=== PATIENT | male | born 1965 | race Caucasian/White ===

== ENCOUNTER 2022-12-24 09:32 | Emergency (ER) | payer BC ==
[2022-12-24] MEDS ORDERED: Sodium Chloride 0.9% 10 ML Syringe FLUSH PRN (09:40)
[2022-12-24 09:50] LABS: BASOPHILS ABSOLUTE AUTO 0.03 10^3/uL (0.00-0.10); BASOPHILS PERCENT AUTO 0.3 % (0.0-1.0); EOSINOPHILS ABSOLUTE AUTO 0.01 10^3/uL (0.10-0.30); EOSINOPHILS PERCENT AUTO 0.1 % (1.0-3.0); HEMATOCRIT 53.5 % (40.0-52.0); HEMOGLOBIN 18.4 g/dL (13.0-17.0); IMMATURE GRAN ABSOLUTE AUTO 0.04 10^3/uL (0.00-0.50); IMMATURE GRAN PERCENT AUTO 0.4 % (0.0-5.0); LYMPHOCYTES ABSOLUTE AUTO 1.53 10^3/uL (1.00-4.00); MEAN CORPUSCULAR HEMOGLOBIN 29.7 pg (27.0-31.0); MEAN CORPUSCULAR HGB CONC 34.4 g/dL (32.0-36.0); MEAN CORPUSCULAR VOLUME 86.4 fL (82.0-92.0); MEAN PLATELET VOLUME 10.9 fL (7.4-10.4); MONOCYTES ABSOLUTE AUTO 0.85 10^3/uL (0.10-0.80); MONOCYTES PERCENT AUTO 8.3 % (2.0-8.0); NEUTROPHILS ABSOLUTE AUTO 7.74 10^3/uL (2.50-7.00); NEUTROPHILS PERCENT AUTO 75.9 % (50.0-70.0); PLATELET COUNT,PLT 152 10^3/uL (150-400); RED BLOOD CELL COUNT 6.19 10^6/uL (4.50-6.00); RED CELL DISTRIBUTION WIDTH 12.1 % (11.5-14.5)
[2022-12-24 10:12] LABS: LACTIC ACID 1.7 mmol/L (0.4-2.0)
[2022-12-24 10:17] LABS: ALANINE AMINOTRANSFERASE,ALT 33 U/L (14-63); ALBUMIN 3.22 g/dL (3.40-5.00); ALKALINE PHOSPHATASE 81 U/L (46-116); ANION GAP 16.6 mmol/L (5-15); ASPARTATE AMNIOTRANSFERASE,AST 23 U/L (15-37); BILIRUBIN TOTAL 1.2 mg/dL (0.2-1.0); BLOOD UREA NITROGEN,BUN 16 mg/dL (7-18); CALCIUM 8.1 mg/dL (8.7-10.3); CARBON DIOXIDE,CO2 22.3 mmol/L (21.0-32.0); CHLORIDE,CL 99 mmol/L (98-107); CREATININE 1.05 mg/dL (0.51-1.17); GLUCOSE RANDOM 238 mg/dL (70-140); POTASSIUM,K 3.9 mmol/L (3.5-5.1); PROTEIN TOTAL,TP 6.9 g/dL (6.4-8.2); SODIUM,NA 134 mmol/L (136-145)
[2022-12-24 10:19] LABS: ESTIMATED GFR 82 mL/min (>=60); ETHANOL BLOOD MEDICAL 1 mg/dL (NOT DETECTED)
[2022-12-24] MEDS ORDERED: Clopidogrel 75 MG Tab PO ONE (10:30)
[2022-12-24] MEDS ORDERED: Aspirin 81 MG Tab.Chew PO ONE (10:30)
[2022-12-24] MEDS ORDERED: diphenhydrAMINE 50 MG/ML SDV IVPUSH ONE (10:41)
[2022-12-24] MEDS ORDERED: predniSONE 20 MG Tab PO ONE (10:42)
[2022-12-24] MEDS ORDERED: Famotidine 20 MG/2 ML SDV IVPUSH ONE (10:45)
[2022-12-24] MEDS ORDERED: Iopamidol 755 Mg/ML 100 ML Bottle IV ONE (10:48)
[2022-12-24] MEDS ORDERED: Sodium Chloride 0.9% 50 ML IV SCH (11:00)
== END 2022-12-24 13:00 ==
LOC: KA.ED 09:32
DX: I63.9 Cerebral infarction, unspecified (principal); I10 Essential (primary) hypertension; E11.9 Type 2 diabetes mellitus without complications; Z91.041 Radiographic dye allergy status; Z88.8 Allergy status to other drugs, medicaments and biological substances; Z88.1 Allergy status to other antibiotic agents
CPT/HCPCS: 70450; 70496; 70498; 71045; 80053; 80307; 83605; 84484; 85025; 85379; 93010; 96374; 96375; 99285; 99285-25; A9270-GY; J1200; J3490; J7512; Q9967

== ENCOUNTER 2024-07-19 09:35 | Day surgery (SDC) | payer BC ==
[~2024-07-19 09:35] MED LIST: Sodium Chloride 0.9% 10 ML Syringe FLUSH PRN
[2024-07-19] MEDS ORDERED: Propofol 200 MG/20 ML SDV IV ONE (09:38)
[2024-07-19] MEDS ORDERED: Propofol 200 MG/20 ML SDV ONE ×2 (09:39→09:41)
[2024-07-19] MEDS ORDERED: Midazolam 1 MG/ML 2 ML SDV ONE (09:39)
[2024-07-19] MEDS: Sodium Chloride 0.9% 1,000 ML IV SCH (09:42)
== END 2024-07-19 12:07 | disposition home or self-care (01) ==
LOC: KA.SDS 09:35
PROVIDERS: ATTEND Surgery
DX: Z12.11 Encounter for screening for malignant neoplasm of colon (principal); D12.0 Benign neoplasm of cecum; D12.3 Benign neoplasm of transverse colon; D12.5 Benign neoplasm of sigmoid colon; I10 Essential (primary) hypertension; E11.9 Type 2 diabetes mellitus without complications; Z79.85 Long-term (current) use of injectable non-insulin antidiabetic drugs; Z79.899 Other long term (current) drug therapy; Z88.8 Allergy status to other drugs, medicaments and biological substances
CPT/HCPCS: 00812; 45380; 82947; J2250; J2704; J7030

== ENCOUNTER 2025-02-14 08:44 | Day surgery (SDC) | payer BC ==
[2025-02-14] MEDS ORDERED: Sodium Chloride 0.9% 10 ML Syringe FLUSH PRN (08:45)
[2025-02-14] MEDS ORDERED: Midazolam 1 MG/ML 2 ML SDV ONE (09:53)
[2025-02-14] MEDS ORDERED: Propofol 200 MG/20 ML SDV ONE (09:53)
== END 2025-02-14 11:31 | disposition home or self-care (01) ==
LOC: KA.SDS 08:44
PROVIDERS: ATTEND Surgery
DX: Z12.11 Encounter for screening for malignant neoplasm of colon (principal); E11.9 Type 2 diabetes mellitus without complications; I10 Essential (primary) hypertension; Z88.8 Allergy status to other drugs, medicaments and biological substances; Z91.09 Other allergy status, other than to drugs and biological substances; Z91.041 Radiographic dye allergy status; Z86.0109 Personal history of other colon polyps; Z79.899 Other long term (current) drug therapy
CPT/HCPCS: 00811; 82947; J2250; J2704; J7030